=== PATIENT | female | born 1955 | race Caucasian/White ===

== ENCOUNTER → 2025-03-19 | Outpatient (CLI) | payer MEDICARE ==
[2025-03-19 15:20] LABS: Cholesterol 197.00 mg/dL (0.00-200.00); HDL Cholesterol 64.40 mg/dL (40.00-60.00); LDL Cholesterol,Calculated 114.4 mg/dL (0.0-131.0); Triglycerides 91.20 mg/dL (0.00-149.00); VLDL Calculation 18.24 mg/dL (5.00-40.00)
== END | disposition home or self-care (01) ==
LOC: LABWHC1 09:50
PROVIDERS: ATTEND Student in an Organized Health Care Education/Training Program
DX: E78.5 Hyperlipidemia, unspecified (principal)
CPT/HCPCS: 36415; 80061